=== PATIENT | male | born 1980 | race Caucasian/White ===

== ENCOUNTER 2017-06-27 21:45 | Emergency (ER) | payer SELFPAY ==
[2017-06-27] MEDS ORDERED: KETOROLAC 30 MG/ML VIAL IM ONE (22:41)
[2017-06-27] MEDS ORDERED: GABAPENTIN 300 MG CAPSULE PO SCH (22:45)
--- NOTE | 2017-06-27 23:52 | Emergency Department Record ---
History of Present Illness - General Chief complaint: Pain Stated complaint: LEFT SHOULDER PAIN Time Seen by Provider: 06/27/17 22:36 Source: Patient Mode of Arrival: Ambulatory Limitations: No limitations - History of Present Illness Initial comments: pt fell 5 days ago against hu=is upper back. he has contd to have pain in his upper back that radiates across his scapula. no numbness. MD Complaint: Other (back pain) Onset/Timin -: Week(s) Location: Left, Shoulder Severity scale (1-10): 10 Quality: Aching Consistency: Constant Improves with: Nothing Worsens with: Nothing - Related Data Home Medications Medication Instructions Recorded Confirmed Last Taken Buprenorphine HCl/Naloxone HCl 1 tab PO DAILY 06/27/17 06/27/17 Unknown [Suboxone 8 mg-2 mg Sl Film] Cyclobenzaprine HCl [Flexeril] 10 mg PO TID 06/27/17 06/27/17 Unknown Hydrocodone/Acetaminophen [[place] 1 each PO Q6H 06/27/17 06/27/17 Unknown 10-325 Tablet] Ibuprofen [Ibuprofen] 800 mg PO TID 06/27/17 06/27/17 Unknown Previous Rx's Medication Instructions Recorded Gabapentin [Neurontin] 300 mg PO BID #14 capsule 06/27/17 Lidocaine Patch [Lidoderm] 1 ea TOP ASDIR #3 patch 06/27/17 Allergies Allergy/AdvReac Type Severity Reaction Status Date / Time No Known Drug Allergies Allergy Verified 06/27/17 21:55 Travel Screening - Travel/Exposure Within Last 30 Days Have you traveled within the last 30 days?: No Review of Systems Reviewed: No additional complaints except as noted below Constitutional: Reports: As per HPI. Denies: Chills, Fever, Malaise, Night sweats, Weakness, Weight change Eyes: Reports: As per HPI. Denies: Eye discharge, Eye pain, Photophobia, Vision change ENT: Reports: As per HPI. Denies: Congestion, Dental pain, Ear pain, Epistaxis , Hearing loss, Throat pain Respiratory: Reports: As per HPI. Denies: Cough, Dyspnea, Hemoptysis, Stridor, Wheezes Cardiovascular: Reports: As per HPI. Denies: Arrhythmia, Chest pain, Dyspnea on exertion, Edema, Murmurs, Orthopnea, Palpitations, Paroxysmal nocturnal dyspnea, Rheumatic Fever, Syncope Endocrine: Reports: As per HPI. Denies: Fatigue, Heat or cold intolerance, Polydipsia, Polyuria Gastrointestinal: Reports: As per HPI. Denies: Abdominal pain, Constipation, Diarrhea, Hematemesis, Hematochezia, Melena, Nausea, Vomiting Genitourinary: Reports: As per HPI. Denies: Dysuria, Frequency, Hematuria, Incontinence, Retention, Testicular pain, Testicular mass, Urgency Musculoskeletal: Reports: As per HPI. Denies: Arthralgia, Back pain, Gout, Joint swelling, Myalgia, Neck pain Skin: Reports: As per HPI. Denies: Bruising, Change in color, Change in hair/ nails, Lesions, Pruritus, Rash Neurological: Reports: As per HPI. Denies: Abnormal gait, Confusion, Headache, Numbness, Paresthesias, Seizure, Tingling, Tremors, Vertigo, Weakness Psychiatric: Reports: As per HPI. Denies: Anxiety, Auditory hallucinations, Depression, Homicidal thoughts, Suicidal thoughts, Visual hallucinations Hematological/Lymphatic: Reports: As per HPI. Denies: Anemia, Blood Clots, Easy bleeding, Easy bruising, Swollen glands Past Medical History - SOCIAL HISTORY Smoking Status: Current every day smoker Alcohol Use: None Drug Use: None - RESPIRATORY Hx Respiratory Disorders: No - CARDIOVASCULAR Hx Cardio Disorders: No - NEURO Hx Neuro Disorders: No - GI Hx GI Disorders: No - Hx Genitourinary Disorders: No - ENDOCRINE Hx Endocrine Disorders: No - MUSCULOSKELETAL Hx Musculoskeletal Disorders: Yes - PSYCH Hx Psych Problems: No - HEMATOLOGY/ONCOLOGY Hx Hematology/Oncology Disorders: No Family Medical History Any Significant Family History?: No Physical Exam - General General Appearance: Alert, Oriented x3, Cooperative, Mild distress - Head Head exam: Normal inspection - Eye Eye exam: Normal appearance, PERRL, EOMI Pupils: Normal accommodation - ENT ENT exam: Normal exam, Mucous membranes moist, Normal external ear exam, Normal orophraynx, TM's normal bilaterally Ear exam: Normal external inspection. negative: External canal tenderness Nasal Exam: Normal inspection. negative: Discharge, Sinus tenderness Mouth exam: Normal external inspection, Tongue normal Teeth exam: Normal inspection. negative: Dental caries Throat exam: Normal inspection. negative: Tonsillar erythema, Tonsillar exudate - Neck Neck exam: Normal inspection, Full ROM. negative: Tenderness - Respiratory Respiratory exam: Normal lung sounds bilaterally. negative: Respiratory distress - Cardiovascular Cardiovascular Exam: Regular rate, Normal rhythm, Normal heart sounds - GI/Abdominal GI/Abdominal exam: Soft, Normal bowel sounds. negative: Tenderness - Rectal Rectal exam: Deferred - exam: Deferred - Extremities Extremities exam: Normal inspection, Full ROM, Normal capillary refill. negative: Tenderness - Back Back exam: Reports: Full ROM, Tenderness. Denies: Muscle spasm, Rash noted Image of Body Front/Back: 1 - area of pain - Neurological Neurological exam: Alert, CN II-XII intact, Normal gait, Oriented X3 - Psychiatric Psychiatric exam: Normal affect, Normal mood - Skin Skin exam: Dry, Intact, Normal color, Warm Course Vital Signs 06/27/17 21:52 Temperature 98.6 F Pulse Rate [ 85 Pulse Ox Probe] Respiratory 20 Rate Blood Pressure 152/90 [Right Arm] Pulse Ox 96 Disposition Disposition: Discharge Clinical Impression: Thoracic radiculopathy Disposition: Home, Self-Care Condition: (1) Good Instructions: Thoracic Disc Herniation (ED) Additional Instructions: follow up with family doctor. return sooner if worse. ice to back Prescriptions: Gabapentin [Neurontin] 300 mg PO BID #14 capsule Lidocaine Patch [Lidoderm] 1 ea TOP ASDIR #3 patch Quality - Quality Measures Quality Measures: N/A - Blood Pressure Screening Does Patient Have Any of the Following: No Blood Pressure Classification: Hypertensive Reading Systolic Measurement: 152 Diastolic Measurement: 90 Screening for High Blood Pressure: < First Hypertensive BP, F/U Documented > [ [id number]] First Hypertensive Follow-up Interventions: Follow-up with rescreen GT 1 day and LT 4 weeks.
--- NOTE | 2017-06-28 19:40 | RADIOLOGY REPORT ---
EXAM: SCAPULA, LEFT HISTORY: FELL A FEW DAYS AGO. LEFT SCAPULAR PAIN. TECHNIQUE: Three views of the left scapula were obtained. COMPARISON: None. ENCOUNTER: Initial. FINDINGS: The bones and joints appear intact. There is no visible acute fracture or dislocation. There are minor arthritic changes of the AC joint. IMPRESSION: NO ACUTE PATHOLOGY IDENTIFIED. JOB NUMBER: [id number] MTDD
== END 2017-06-27 23:57 | disposition home or self-care (01) ==
LOC: ER 21:45
DX: M54.14 Radiculopathy, thoracic region (principal)
CPT/HCPCS: 96372; 99283; 99284; J1885